=== PATIENT | male | born 1945 | race Caucasian/White ===

== ENCOUNTER 2018-10-20 07:02 | Outpatient (CLI) | payer OTHER ==
[~2018-10-20 07:02] MED LIST: FORTAMET500 MG; HUMALOG100 UNIT/1; LISINOPRIL2.5 MG; METFORMIN HYDRO25 GM; NORVASC2.5 M1
== END 2018-10-20 07:07 | disposition home or self-care (01) ==
LOC: RAD 07:02
DX: J20.8 Acute bronchitis due to other specified organisms (principal)

== ENCOUNTER 2018-10-20 07:31 | Outpatient (CLI) | payer OTHER | END 2018-10-20 07:35 | disposition home or self-care (01) | LOC: LAB 07:31 | DX: Z11.3 Encounter for screening for infections with a predominantly sexual mode of transmission (principal) ==

== ENCOUNTER 2019-11-19 07:18 | Outpatient (CLI) | payer OTHER | END 2019-11-19 07:20 | disposition home or self-care (01) | LOC: RAD 07:18 | DX: J20.8 Acute bronchitis due to other specified organisms (principal); J30.89 Other allergic rhinitis ==

== ENCOUNTER 2019-11-19 08:12 | Outpatient (CLI) | payer OTHER | END 2019-11-19 08:22 | disposition home or self-care (01) | LOC: LAB 08:12 | DX: Z00.00 Encounter for general adult medical examination without abnormal findings (principal) ==